=== PATIENT | female | born 1945 | race Caucasian/White ===

== ENCOUNTER → 2019-01-06 | Day surgery (SDC) | payer OTHER, BC | LOC: JASU-SURG 07:04 ==

== ENCOUNTER 2019-01-11 10:55 | Inpatient (IN) | payer OTHER ==
[2019-01-11 11:10] VITALS: BMI 30.8
--- NOTE | 2019-01-11 12:06 | HP ---
CIWA Score Nausea/Vomitin Muscle Tremors: 3 Anxiety: 3 Agitation: 3 Paroxysmal Sweats: 1-Minimal Palms Moist Orientation: 0-Oriented Tacttile Disturbances: 1-Very Mild Itch/Numbness Auditory Disturbances: 0-None Visual Disturbances: 1-Very Mild Sensitivity Headache: 2-Mild CIWA-Ar Total Score: 16 - Admission Criteria OASAS Guidelines: Admission for Medically Managed Detox: Requires at least one of the followin. CIWA greater than 12 2. Seizures within the past 24 hours 3. Delirium tremens within the past 24 hours 4. Hallucinations within the past 24 hours 5. Acute intervention needed for co occurring medical disorder 6. Acute intervention needed for co occurring psychiatric disorder 7. Severe withdrawal that cannot be handled at a lower level of care (continued vomiting, continued diarrhea, abnormal vital signs) requiring intravenous medication and/or fluids 8. Admission ROS [facility] - HPI Chief Complaint: i need help to stop drinking alcohol Allergies/Adverse Reactions: Allergies Allergy/AdvReac Type Severity Reaction Status Date / Time No Known Allergies Allergy Verified 01/11/19 11:03 History of Present Illness: this 73 years old female with alcohol dependence,seking help to stop drinking, withdrawal symptom had previous detox last 12/03/14 to 12/07/14 [facility] tear of right shoulder hypertension syncope alcohol related plan for rehab after detox - Ebola screening Have you traveled outside of the country in the last 21 days: No Have you had contact with anyone from an Ebola affected area: No Do you have a fever: No - Review of Systems Constitutional: Loss of Appetite, Malaise, Night Sweats, Changes in sleep, Weakness EENT: reports: Nose Congestion Respiratory: reports: No Symptoms reported Cardiac: reports: No Symptoms Reported GI: reports: Nausea, Vomiting, Abdominal cramping : reports: No Symptoms Reported Musculoskeletal: reports: Back Pain, Muscle Pain, Other (rotator cuff injury right shoulder) Integumentary: reports: Dryness Neuro: reports: Headache, Tremors Endocrine: reports: No Symptoms Reported Hematology: reports: No Symptoms Reported Psychiatric: reports: No Sypmtoms Reported Patient History - Patient Medical History Hx Anemia: Yes (IRON DAILY) Hx Asthma: Yes (ALLERGIC ASTHMA) Hx Chronic Obstructive Pulmonary Disease (COPD): No Hx Cancer: No Hx Cardiac Disorders: No Hx Congestive Heart Failure: No Hx Hypertension: Yes (on med) Hx Hypercholesterolemia: Yes (NO MEDS) Hx Pacemaker: No HX Cerebrovascular Accident: No Hx Seizures: No Hx Dementia: No Hx Diabetes: No Hx Gastrointestinal Disorders: Yes (PROTONIX) Hx Liver Disease: No Hx Genitourinary Disorders: No Hx Sexually Transmitted Disorders: No Hx Renal Disease (ESRD): No Hx Thyroid Disease: No Hx Human Immunodeficiency Virus (HIV): No Hx Hepatitis C: No Hx Depression: Yes Hx Suicide Attempt: No Hx Bipolar Disorder: No Hx Schizophrenia: No Other Medical History: no suicidal,no homicidal - Patient Surgical History Past Surgical History: Yes Hx Neurologic Surgery: No Hx Cataract Extraction: No Hx Cardiac Surgery: No Hx Lung Surgery: No Hx Breast Surgery: No Hx Breast Biopsy: No Hx Abdominal Surgery: No Hx Appendectomy: No Hx Cholecystectomy: No Hx Genitourinary Surgery: No Hx Section: No Hx Orthopedic Surgery: No Anesthesia Reaction: No - PPD History Previous Implant?: Yes Documented Results: Negative w/o proof Implanted On Prior R Admission?: Yes Date: 12/05/14 Results: 0 mm PPD to be Administered?: Yes - Smoking Cessation Smoking history: Former smoker Have you smoked in the past 12 months: No Hx Chewing Tobacco Use: No Initiated information on smoking cessation: Yes 'Breaking Loose' booklet given: 01/11/19 - Substance & Tx. History Hx Alcohol Use: Yes Hx Substance Use: No Substance Use Type: Alcohol Hx Substance Use Treatment: Yes ([facility] 12/03/14 to 12/07/14) - Substances abused Alcohol Substance route: Oral Frequency: Daily Amount used: 1/2 [place] Age of first use: 17 Date of last use: 01/10/19 Family Disease History - Family Disease History Family Disease History: Diabetes: Mother (HTN,CO), Heart Disease: Mother, Other : Son (ALCOHOL) Admission Physical Exam BHS - Vital Signs Vital Signs: Vital Signs - 24 hr 01/11/19 01/11/19 11:08 11:33 Temperature 97.0 F L 97.0 F L Pulse Rate 95 H 95 H Respiratory 18 18 Rate Blood Pressure 158/85 158/85 - Physical General Appearance: Yes: Moderate Distress, Tremorous, Irritable, Sweating, Anxious HEENTM: Yes: Normocephalic, Normal Voice, ROBBIN, Pharynx Normal Respiratory: Yes: Lungs Clear, Normal Breath Sounds, No Respiratory Distress Neck: Yes: Within Normal Limits, Supple, Trachea in good position Breast: Yes: Breast Exam Deferred Cardiology: Yes: Within Normal Limits, Regular Rhythm, Regular Rate, S1, S2 Abdominal: Yes: Within Normal Limits, Normal Bowel Sounds, Non Tender, Flat, Soft Genitourinary: Yes: Within Normal Limits Back: Yes: Muscle Spasm Musculoskeletal: Yes: full range of Motion, Back pain, Muscle Pain Extremities: Yes: Tremors, Other (rotator cuff injury) Neurological: Yes: telephone service adviser II-XII NML intact, Fully Oriented, Alert, Motor Strength 5/5 Integumentary: Yes: Dry Lymphatic: Yes: Within Normal Limits - Diagnostic (1) Alcohol dependence with uncomplicated withdrawal Current Visit: Yes Status: Acute (2) Anemia Current Visit: No Status: Acute (3) GERD (gastroesophageal reflux disease) Current Visit: No Status: Acute (4) HTN (hypertension) Current Visit: No Status: Acute (5) Hyperlipidemia Current Visit: No Status: Acute (6) Syncope Current Visit: Yes Status: Acute (7) Rotator cuff arthropathy of right shoulder Current Visit: Yes Status: Acute Cleared for Admission [facility] - Detox or Rehab [facility] Level of Care: Medically Managed Detox Regimen/Protocol: Librium Breathalyzer - Breathalyzer Breathalyzer: 0 Urine Drug Screen - Test Device Lot number: [id number] Expiration date: 08/07/20 - Control Is test valid?: Yes - Results Drug screen NEGATIVE: No Urine drug screen results: MTD-Methadone Inpatient Rehab Admission - Rehab Decision to Admit Inpatient rehab admission?: No
[2019-01-11] MEDS ORDERED: METHOCARBAMOL 500 MG TABLET PO PRN (12:17)
[2019-01-11] MEDS ORDERED: MAGNESIUM HYDROX 2400MG/30ML ORAL SUSPENSION 30 ML CUP PO PRN (12:17)
[2019-01-11] MEDS ORDERED: MENTHOL/PHENOL 1 EACH UD MM PRN (12:17)
[2019-01-11] MEDS ORDERED: MELATONIN 5 MG TABLETS PO PRN (12:17)
[2019-01-11] MEDS ORDERED: IBUPROFEN 400 MG TABLET (FP) PO PRN (12:17)
[2019-01-11] MEDS ORDERED: MAGNESIUM CITRATE 300 ML BOTTLE PO PRN (12:17)
[2019-01-11] MEDS ORDERED: MAG HYDROX/AL HYDROX/SIMETH 30 ML UNIT-DOSE CUP PO PRN (12:17)
[2019-01-11] MEDS ORDERED: hydrOXYzine PAMOATE 25 MG CAPSULE (FP) PO PRN (12:17)
[2019-01-11] MEDS ORDERED: ACETAMINOPHEN 325 MG TABLET (FP) PO PRN ×2 (12:17)
[2019-01-11] MEDS ORDERED: BISMUTH SUBSALICYLATE 262 MG/15 ML BTL PO PRN (12:17)
[2019-01-11] MEDS ORDERED: TRIMETHOBENZAMIDE HCL 200MG/2ML INJ IM PRN (12:20)
[2019-01-11] MEDS: chlordiazePOXIDE HCL 25 MG CAPSULE PO PRN ×2 (14:11→19:50)
[2019-01-11] MEDS ORDERED: ONDANSETRON *ODT* 4 MG TABLET SL PRN (14:55)
[2019-01-11] MEDS: chlordiazePOXIDE HCL 25 MG CAPSULE PO SCH ×2 (17:08→22:07)
[2019-01-11 19:00] LABS: HEMATOCRIT 37.8 % (32.4-45.2); HEMOGLOBIN 12.3 GM/dL (10.7-15.3); MCH 29.4 pg (25.7-33.7); MCHC 32.6 g/dl (32.0-36.0); MEAN CELL VOLUME 90.4 fl (80-96); MEAN PLT VOLUME 7.6 fl (7.5-11.1); PLATELET COUNT 190 K/MM3 (134-434); RBC 4.18 M/mm3 (3.60-5.2); WHITE BLOOD COUNT 8.1 K/mm3 (4.0-10.0)
[2019-01-11 19:27] LABS: ALBUMIN 4.4 g/dl (3.4-5.0); ALK PHOS 81 U/L (45-117); ANION GAP 13 MMOL/L (8-16); BILIRUBIN,TOTAL 1.2 mg/dL (0.2-1); BLOOD UREA NITROGEN 24 mg/dL (7-18); CALCIUM 8.9 mg/dL (8.5-10.1); CHLORIDE 93 mmol/L (98-107); CO2 28 mmol/L (21-32); CREATININE 1.2 mg/dL (0.55-1.3); GLUCOSE,RANDOM 242 mg/dL (74-106); POTASSIUM 3.4 mmol/L (3.5-5.1); SGOT/AST 43 U/L (15-37); SGPT/ALT 31 U/L (13-61); SODIUM 134 mmol/L (136-145)
--- NOTE | 2019-01-11 19:42 | PN ---
S Progress Note Note: K level is 3.4. EKG - wnl Will repeat electrolytes in am.
[2019-01-11] MEDS: THIAMINE HCL 100 MG TABLET (FP) PO SCH (22:07)
[2019-01-11] MEDS: QUEtiapine FUMARATE 50 MG TABLET PO SCH (22:08)
[2019-01-11] MEDS: FERROUS SO4 325 MG TABLET (FP) PO SCH (22:08)
[2019-01-12] MEDS: chlordiazePOXIDE HCL 25 MG CAPSULE PO SCH ×4 (05:31→22:13)
[2019-01-12] MEDS ORDERED: PANTOPRAZOLE 40 MG TABLET (FP) PO SCH (10:00)
[2019-01-12] MEDS: amLODIPine BESYLATE 10 MG TABLET (FP) PO SCH (10:28)
[2019-01-12] MEDS: PRENATAL VITAMINS W/ FOLIC ACID TABLET (FP) PO SCH (10:28)
[2019-01-12] MEDS: LOSARTAN POTASSIUM 50 MG TABLET (FP) PO SCH (10:28)
[2019-01-12] MEDS: FERROUS SO4 325 MG TABLET (FP) PO SCH ×2 (10:28→22:14)
[2019-01-12] MEDS: HYDROCHLOROTHIAZIDE 12.5 MG CAPSULE (FP) PO SCH (10:28)
[2019-01-12] MEDS: RANITIDINE HCL 150 MG TABLET (FP) PO SCH ×2 (10:29→22:14)
--- NOTE | 2019-01-12 11:32 | PN ---
[facility] CIWA - CIWA Score Nausea/Vomitin-Mild Nausea/No Vomiting Muscle Tremors: 3 Anxiety: 3 Agitation: 3 Paroxysmal Sweats: 1-Minimal Palms Moist Orientation: 1-Uncertain about Date Tacttile Disturbances: 0-None Auditory Disturbances: 0-None Visual Disturbances: 0-None Headache: 0-None Present CIWA-Ar Total Score: 12 S Progress Note (SOAP) Subjective: doing well with librium protocol less tremor mild muscle sore Objective: 01/12/19 11:33 Vital Signs Temperature 97.1 F L 01/12/19 09:09 Pulse Rate 112 H 01/12/19 09:09 Respiratory Rate 18 01/12/19 09:09 Blood Pressure 140/79 01/12/19 09:09 O2 Sat by Pulse Oximetry (%) Laboratory Last Values WBC 8.1 K/mm3 (4.0-10.0) 01/11/19 12:15 RBC 4.18 M/mm3 (3.60-5.2) 01/11/19 12:15 Hgb 12.3 GM/dL (10.7-15.3) 01/11/19 12:15 Hct 37.8 % (32.4-45.2) 01/11/19 12:15 MCV 90.4 fl (80-96) 01/11/19 12:15 MCH 29.4 pg (25.7-33.7) D 01/11/19 12:15 MCHC 32.6 g/dl (32.0-36.0) 01/11/19 12:15 RDW 15.0 % (11.6-15.6) D 01/11/19 12:15 Plt Count 190 K/MM3 (134-434) 01/11/19 12:15 MPV 7.6 fl (7.5-11.1) 01/11/19 12:15 Sodium 134 mmol/L (136-145) L 01/11/19 12:15 Potassium 3.4 mmol/L (3.5-5.1) L 01/11/19 12:15 Chloride 93 mmol/L (98-107) L 01/11/19 12:15 Carbon Dioxide 28 mmol/L (21-32) 01/11/19 12:15 Anion Gap 13 MMOL/L (8-16) 01/11/19 12:15 BUN 24 mg/dL (7-18) H 01/11/19 12:15 Creatinine 1.2 mg/dL (0.55-1.3) 01/11/19 12:15 Creat Clearance w eGFR 43.91 (>60) 01/11/19 12:15 Random Glucose 242 mg/dL (74-106) H 01/11/19 12:15 Calcium 8.9 mg/dL (8.5-10.1) 01/11/19 12:15 Total Bilirubin 1.2 mg/dL (0.2-1) H 01/11/19 12:15 AST 43 U/L (15-37) H 01/11/19 12:15 ALT 31 U/L (13-61) 01/11/19 12:15 Alkaline Phosphatase 81 U/L (45-117) 01/11/19 12:15 Total Protein 8.0 g/dl (6.4-8.2) 01/11/19 12:15 Albumin 4.4 g/dl (3.4-5.0) 01/11/19 12:15 POC Urine HCG, Qual Negative 01/11/19 11:44 lab noted K+ 3.4 repeat K+ today result pending Assessment: 01/12/19 11:34 alcohol withdrawal sx Plan: continue detox
[2019-01-12] MEDS ORDERED: cloNIDine HCL 0.1 MG TABLET PO PRN (11:36)
--- NOTE | 2019-01-12 13:00 | EKG ---
Test Reason : Blood Pressure : / mmHG Vent. Rate : 081 BPM Atrial Rate : 081 BPM P-R Int : 126 ms QRS Dur : 078 ms QT Int : 404 ms P-R-T Axes : 020 041 057 degrees QTc Int : 469 ms NORMAL SINUS RHYTHM NORMAL ECG WHEN COMPARED WITH ECG OF 17-MAY-2006 15:13, NO SIGNIFICANT CHANGE WAS FOUND Confirmed by MD ROSALES, MIGUEL ([id number]) on 01/12/2019 1:00:18 PM Referred By: Confirmed By:MIGUEL CABA MD
--- NOTE | 2019-01-12 14:44 | PN ---
[facility] Progress Note Note: patient is borderline diabetes taking herb medication at home patient requesting bgm before breakfast daily reject oral antiglycemia medication encourage weight loss
[2019-01-12 20:26] LABS: EPI CELLS 13.8 /HPF (0-5/HPF); URINE APPEARANCE CLEAR; URINE BACTERIA 139.1 /hpf (NEGATIVE); URINE BILIRUBIN NEGATIVE (NEGATIVE); URINE CASTS 32 /lpf (0-8); URINE COLOR DK YELLOW; URINE GLUCOSE (UA) NEGATIVE (NEGATIVE); URINE KETONE TRACE (NEGATIVE); URINE LEUK ESTERASE TRACE (NEGATIVE); URINE NITRITE NEGATIVE (NEGATIVE); URINE PROTEIN 2+ (NEGATIVE); URINE RBC 3 /hpf (0-4); URINE UROBILINOGEN 0.2 mg/dL (0.2-1.0); URINE WBC 6 /hpf (0-5)
[2019-01-12] MEDS: THIAMINE HCL 100 MG TABLET (FP) PO SCH (22:13)
[2019-01-12] MEDS: QUEtiapine FUMARATE 50 MG TABLET PO SCH (22:14)
[2019-01-13] MEDS: chlordiazePOXIDE HCL 25 MG CAPSULE PO SCH ×2 (06:00→10:03)
[2019-01-13] MEDS: RANITIDINE HCL 150 MG TABLET (FP) PO SCH ×2 (10:03→22:25)
[2019-01-13] MEDS: LOSARTAN POTASSIUM 50 MG TABLET (FP) PO SCH (10:03)
[2019-01-13] MEDS: FERROUS SO4 325 MG TABLET (FP) PO SCH ×2 (10:03→22:25)
[2019-01-13] MEDS: PRENATAL VITAMINS W/ FOLIC ACID TABLET (FP) PO SCH (10:03)
[2019-01-13] MEDS: HYDROCHLOROTHIAZIDE 12.5 MG CAPSULE (FP) PO SCH (10:03)
[2019-01-13] MEDS: amLODIPine BESYLATE 10 MG TABLET (FP) PO SCH (10:03)
--- NOTE | 2019-01-13 14:48 | PN ---
S CIWA - CIWA Score Nausea/Vomitin-Mild Nausea/No Vomiting Muscle Tremors: 2 Anxiety: 2 Agitation: 2 Paroxysmal Sweats: No Perspiration Orientation: 0-Oriented Tacttile Disturbances: 0-None Auditory Disturbances: 0-None Visual Disturbances: 0-None Headache: 1-Very Mild CIWA-Ar Total Score: 8 S Progress Note (SOAP) Subjective: feeling better today more energy social with peers in day room Objective: 01/13/19 14:50 Vital Signs Temperature 98.6 F 01/13/19 14:15 Pulse Rate 93 H 01/13/19 14:15 Respiratory Rate 18 01/13/19 14:15 Blood Pressure 94/60 01/13/19 14:15 O2 Sat by Pulse Oximetry (%) Laboratory Last Values WBC 8.1 K/mm3 (4.0-10.0) 01/11/19 12:15 RBC 4.18 M/mm3 (3.60-5.2) 01/11/19 12:15 Hgb 12.3 GM/dL (10.7-15.3) 01/11/19 12:15 Hct 37.8 % (32.4-45.2) 01/11/19 12:15 MCV 90.4 fl (80-96) 01/11/19 12:15 MCH 29.4 pg (25.7-33.7) D 01/11/19 12:15 MCHC 32.6 g/dl (32.0-36.0) 01/11/19 12:15 RDW 15.0 % (11.6-15.6) D 01/11/19 12:15 Plt Count 190 K/MM3 (134-434) 01/11/19 12:15 MPV 7.6 fl (7.5-11.1) 01/11/19 12:15 Sodium 134 mmol/L (136-145) L 01/11/19 12:15 Potassium 3.4 mmol/L (3.5-5.1) L 01/13/19 09:45 Chloride 93 mmol/L (98-107) L 01/11/19 12:15 Carbon Dioxide 28 mmol/L (21-32) 01/11/19 12:15 Anion Gap 13 MMOL/L (8-16) 01/11/19 12:15 BUN 24 mg/dL (7-18) H 01/11/19 12:15 Creatinine 1.2 mg/dL (0.55-1.3) 01/11/19 12:15 Creat Clearance w eGFR 43.91 (>60) 01/11/19 12:15 POC Glucometer 135 UNITS (80-120) 01/13/19 05:59 Random Glucose 242 mg/dL (74-106) H 01/11/19 12:15 Calcium 8.9 mg/dL (8.5-10.1) 01/11/19 12:15 Total Bilirubin 1.2 mg/dL (0.2-1) H 01/11/19 12:15 AST 43 U/L (15-37) H 01/11/19 12:15 ALT 31 U/L (13-61) 01/11/19 12:15 Alkaline Phosphatase 81 U/L (45-117) 01/11/19 12:15 Total Protein 8.0 g/dl (6.4-8.2) 01/11/19 12:15 Albumin 4.4 g/dl (3.4-5.0) 01/11/19 12:15 Urine Color Dk yellow 01/12/19 12:30 Urine Appearance Clear 01/12/19 12:30 Urine pH 5.0 (5.0-8.0) 01/12/19 12:30 Ur Specific [place] 1.021 (1.010-1.035) 01/12/19 12:30 Urine Protein 2+ (NEGATIVE) H 01/12/19 12:30 Urine Glucose (UA) Negative (NEGATIVE) 01/12/19 12:30 Urine Ketones Trace (NEGATIVE) H 01/12/19 12:30 Urine Blood Negative (NEGATIVE) 01/12/19 12:30 Urine Nitrite Negative (NEGATIVE) 01/12/19 12:30 Urine Bilirubin Negative (NEGATIVE) 01/12/19 12:30 Urine Urobilinogen 0.2 mg/dL (0.2-1.0) 01/12/19 12:30 Ur Leukocyte Esterase Trace (NEGATIVE) 01/12/19 12:30 Urine WBC (Auto) 6 /hpf (0-5) 01/12/19 12:30 Urine RBC (Auto) 3 /hpf (0-4) 01/12/19 12:30 Urine Casts (Auto) 32 /lpf (0-8) 01/12/19 12:30 U Pathogenic Cast Auto None /lpf (NEGATIVE) 01/12/19 12:30 U Epithel Cells (Auto) 13.8 /HPF (0-5/HPF) 01/12/19 12:30 Urine Bacteria (Auto) 139.1 /hpf (NEGATIVE) 01/12/19 12:30 POC Urine HCG, Qual Negative 01/11/19 11:44 RPR Titer Nonreactive (NONREACTIVE) 01/11/19 12:15 lab noted K+3.4 Assessment: 01/13/19 14:54 alcohol withdrawal sx low K+ Plan: continue detox repeat K+ K+ supplement
--- NOTE | 2019-01-13 16:40 | PN ---
[facility] Progress Note Note: patient requesting to take hs medication seroquel at 2000 pm that she sleep early
[2019-01-13] MEDS ORDERED: chlordiazePOXIDE HCL 10 MG CAPSULE PO PRN (17:00)
[2019-01-13] MEDS: chlordiazePOXIDE HCL 10 MG CAPSULE PO SCH ×2 (17:52→22:25)
[2019-01-13] MEDS: POTASSIUM CHLORIDE ORAL LIQUID 20 MEQ/15 ML PO SCH ×2 (17:52→20:05)
[2019-01-13] MEDS: QUEtiapine FUMARATE 50 MG TABLET PO SCH ×2 (20:05→22:27)
[2019-01-13] MEDS: THIAMINE HCL 100 MG TABLET (FP) PO SCH (22:25)
[2019-01-14] MEDS: chlordiazePOXIDE HCL 10 MG CAPSULE PO SCH ×3 (06:15→17:18)
[2019-01-14] MEDS: HYDROCHLOROTHIAZIDE 12.5 MG CAPSULE (FP) PO SCH (10:31)
[2019-01-14] MEDS: RANITIDINE HCL 150 MG TABLET (FP) PO SCH ×2 (10:31→22:02)
[2019-01-14] MEDS: FERROUS SO4 325 MG TABLET (FP) PO SCH ×2 (10:31→22:02)
[2019-01-14] MEDS: PRENATAL VITAMINS W/ FOLIC ACID TABLET (FP) PO SCH (10:32)
[2019-01-14] MEDS: amLODIPine BESYLATE 10 MG TABLET (FP) PO SCH (11:09)
[2019-01-14] MEDS: LOSARTAN POTASSIUM 50 MG TABLET (FP) PO SCH (11:09)
--- NOTE | 2019-01-14 12:22 | PN ---
[facility] CIWA - CIWA Score Nausea/Vomitin-Mild Nausea/No Vomiting Muscle Tremors: 1-None Visible, but [place] Anxiety: 1-Mildly Anxious Agitation: 1-Slight > Activity Paroxysmal Sweats: No Perspiration Orientation: 0-Oriented Tacttile Disturbances: 0-None Auditory Disturbances: 0-None Visual Disturbances: 0-None Headache: 1-Very Mild CIWA-Ar Total Score: 5 S Progress Note (SOAP) Subjective: feeling better encourage to utilize community health services for medical issues Objective: 01/14/19 12:23 Vital Signs Temperature 96.9 F L 01/14/19 09:53 Pulse Rate 77 01/14/19 09:53 Respiratory Rate 20 01/14/19 09:53 Blood Pressure 108/65 01/14/19 09:53 O2 Sat by Pulse Oximetry (%) Laboratory Last Values WBC 8.1 K/mm3 (4.0-10.0) 01/11/19 12:15 RBC 4.18 M/mm3 (3.60-5.2) 01/11/19 12:15 Hgb 12.3 GM/dL (10.7-15.3) 01/11/19 12:15 Hct 37.8 % (32.4-45.2) 01/11/19 12:15 MCV 90.4 fl (80-96) 01/11/19 12:15 MCH 29.4 pg (25.7-33.7) D 01/11/19 12:15 MCHC 32.6 g/dl (32.0-36.0) 01/11/19 12:15 RDW 15.0 % (11.6-15.6) D 01/11/19 12:15 Plt Count 190 K/MM3 (134-434) 01/11/19 12:15 MPV 7.6 fl (7.5-11.1) 01/11/19 12:15 Sodium 134 mmol/L (136-145) L 01/11/19 12:15 Potassium 4.2 mmol/L (3.5-5.1) 01/14/19 07:00 Chloride 93 mmol/L (98-107) L 01/11/19 12:15 Carbon Dioxide 28 mmol/L (21-32) 01/11/19 12:15 Anion Gap 13 MMOL/L (8-16) 01/11/19 12:15 BUN 24 mg/dL (7-18) H 01/11/19 12:15 Creatinine 1.2 mg/dL (0.55-1.3) 01/11/19 12:15 Creat Clearance w eGFR 43.91 (>60) 01/11/19 12:15 POC Glucometer 154 UNITS (80-120) 01/14/19 06:17 Random Glucose 242 mg/dL (74-106) H 01/11/19 12:15 Calcium 8.9 mg/dL (8.5-10.1) 01/11/19 12:15 Total Bilirubin 1.2 mg/dL (0.2-1) H 01/11/19 12:15 AST 43 U/L (15-37) H 01/11/19 12:15 ALT 31 U/L (13-61) 01/11/19 12:15 Alkaline Phosphatase 81 U/L (45-117) 01/11/19 12:15 Total Protein 8.0 g/dl (6.4-8.2) 01/11/19 12:15 Albumin 4.4 g/dl (3.4-5.0) 01/11/19 12:15 Urine Color Dk yellow 01/12/19 12:30 Urine Appearance Clear 01/12/19 12:30 Urine pH 5.0 (5.0-8.0) 01/12/19 12:30 Ur Specific [place] 1.021 (1.010-1.035) 01/12/19 12:30 Urine Protein 2+ (NEGATIVE) H 01/12/19 12:30 Urine Glucose (UA) Negative (NEGATIVE) 01/12/19 12:30 Urine Ketones Trace (NEGATIVE) H 01/12/19 12:30 Urine Blood Negative (NEGATIVE) 01/12/19 12:30 Urine Nitrite Negative (NEGATIVE) 01/12/19 12:30 Urine Bilirubin Negative (NEGATIVE) 01/12/19 12:30 Urine Urobilinogen 0.2 mg/dL (0.2-1.0) 01/12/19 12:30 Ur Leukocyte Esterase Trace (NEGATIVE) 01/12/19 12:30 Urine WBC (Auto) 6 /hpf (0-5) 01/12/19 12:30 Urine RBC (Auto) 3 /hpf (0-4) 01/12/19 12:30 Urine Casts (Auto) 32 /lpf (0-8) 01/12/19 12:30 U Pathogenic Cast Auto None /lpf (NEGATIVE) 01/12/19 12:30 U Epithel Cells (Auto) 13.8 /HPF (0-5/HPF) 01/12/19 12:30 Urine Bacteria (Auto) 139.1 /hpf (NEGATIVE) 01/12/19 12:30 POC Urine HCG, Qual Negative 01/11/19 11:44 RPR Titer Nonreactive (NONREACTIVE) 01/11/19 12:15 lab noted Assessment: 01/14/19 12:23 mild alcohol withdrawal sx Plan: continue detox
[2019-01-14] MEDS: THIAMINE HCL 100 MG TABLET (FP) PO SCH (22:01)
[2019-01-14] MEDS: QUEtiapine FUMARATE 50 MG TABLET PO SCH (22:02)
[2019-01-15] MEDS: chlordiazePOXIDE HCL 10 MG CAPSULE PO SCH (05:24)
[2019-01-15 09:10] VITALS: BP 131/68; PULSE 92; TEMP 97.3
--- NOTE | 2019-01-15 19:14 | DS ---
[facility] Detox Discharge Summary Admission Date: 01/11/19 Discharge Date: 01/15/19 - History Present History: Alcohol Dependence Additional Comments: PATIENT GOING HOME FOR THE WEEKEND, BUT WILL THEN APPLY FOR ADMISSION TO [facility] ([place], [place]) FOR AFTERCARE. PATIENT DECLINED OFFER OF MEDICATION PRESCRIPTION FOR HOME MEDICATION AT TIME OF DISCHARGE FROM DETOX, NOTING THAT HE CURRENTLY HAS ADEQUATE SUPPLIES OF ALL PRESCRIBED HOME MEDICATIONS AT HOME. PATIENT WAS DISCHARGED FROM DETOX UNIT IN STABLE MEDICAL CONDITION. Pertinent Past History: History Of Anemia, G.E.R.D., History Of Asthma, Hyperlipidemia, G.E.R.D, History Of Syncope (Alcohol-Related), History Of Rotator Cuff Arthropathy Of Right Shoulder, History Of Depression. - Physical Exam Results Vital Signs: Vital Signs Temperature 97.3 F L 01/15/19 09:09 Pulse Rate 92 H 01/15/19 09:09 Respiratory Rate 18 01/15/19 09:09 Blood Pressure 131/68 01/15/19 09:09 O2 Sat by Pulse Oximetry (%) Pertinent Admission Physical Exam Findings: WITHDRAWAL SYMPTOMS. Laboratory Tests 01/11/19 01/11/19 01/11/19 11:44 12:15 12:15 WBC 8.1 RBC 4.18 Hgb 12.3 Hct 37.8 MCV 90.4 MCH 29.4 D MCHC 32.6 RDW 15.0 D Plt Count 190 MPV 7.6 Sodium 134 L Potassium 3.4 L Chloride 93 L Carbon Dioxide 28 Anion Gap 13 BUN 24 H Creatinine 1.2 Creat Clearance w eGFR 43.91 POC Glucometer Random Glucose 242 H Calcium 8.9 Total Bilirubin 1.2 H AST 43 H ALT 31 Alkaline Phosphatase 81 Total Protein 8.0 Albumin 4.4 Urine Color Urine Appearance Urine pH Ur Specific [place] Urine Protein Urine Glucose (UA) Urine Ketones Urine Blood Urine Nitrite Urine Bilirubin Urine Urobilinogen Ur Leukocyte Esterase Urine WBC (Auto) Urine RBC (Auto) Urine Casts (Auto) U Pathogenic Cast Auto U Epithel Cells (Auto) Urine Bacteria (Auto) POC Urine HCG, Qual Negative RPR Titer 01/11/19 01/12/19 01/13/19 12:15 12:30 05:59 WBC RBC Hgb Hct MCV MCH MCHC RDW Plt Count MPV Sodium Potassium Chloride Carbon Dioxide Anion Gap BUN Creatinine Creat Clearance w eGFR POC Glucometer 135 Random Glucose Calcium Total Bilirubin AST ALT Alkaline Phosphatase Total Protein Albumin Urine Color Dk yellow Urine Appearance Clear Urine pH 5.0 Ur Specific [place] 1.021 Urine Protein 2+ H Urine Glucose (UA) Negative Urine Ketones Trace H Urine Blood Negative Urine Nitrite Negative Urine Bilirubin Negative Urine Urobilinogen 0.2 Ur Leukocyte Esterase Trace Urine WBC (Auto) 6 Urine RBC (Auto) 3 Urine Casts (Auto) 32 U Pathogenic Cast Auto None U Epithel Cells (Auto) 13.8 Urine Bacteria (Auto) 139.1 POC Urine HCG, Qual RPR Titer Nonreactive 01/13/19 01/14/19 01/14/19 09:45 06:17 07:00 WBC RBC Hgb Hct MCV MCH MCHC RDW Plt Count MPV Sodium Potassium 3.4 L 4.2 Chloride Carbon Dioxide Anion Gap BUN Creatinine Creat Clearance w eGFR POC Glucometer 154 Random Glucose Calcium Total Bilirubin AST ALT Alkaline Phosphatase Total Protein Albumin Urine Color Urine Appearance Urine pH Ur Specific [place] Urine Protein Urine Glucose (UA) Urine Ketones Urine Blood Urine Nitrite Urine Bilirubin Urine Urobilinogen Ur Leukocyte Esterase Urine WBC (Auto) Urine RBC (Auto) Urine Casts (Auto) U Pathogenic Cast Auto U Epithel Cells (Auto) Urine Bacteria (Auto) POC Urine HCG, Qual RPR Titer 01/15/19 05:23 WBC RBC Hgb Hct MCV MCH MCHC RDW Plt Count MPV Sodium Potassium Chloride Carbon Dioxide Anion Gap BUN Creatinine Creat Clearance w eGFR POC Glucometer 135 Random Glucose Calcium Total Bilirubin AST ALT Alkaline Phosphatase Total Protein Albumin Urine Color Urine Appearance Urine pH Ur Specific [place] Urine Protein Urine Glucose (UA) Urine Ketones Urine Blood Urine Nitrite Urine Bilirubin Urine Urobilinogen Ur Leukocyte Esterase Urine WBC (Auto) Urine RBC (Auto) Urine Casts (Auto) U Pathogenic Cast Auto U Epithel Cells (Auto) Urine Bacteria (Auto) POC Urine HCG, Qual RPR Titer LABS NOTED. - Treatment Hospital Course: Detox Protocol Followed, Detoxed Safely, Responded well, Discharged Condition Good, Rehab Referral Accepted Patient has Accepted a Rehab Referral to: [facility] ([place], [place]). - Medication Discharge Medications: Ambulatory Orders Ferrous Sulfate [Feosol] 325 mg PO BID #60 tablet 12/07/14 Pantoprazole Sodium [Protonix -] 40 mg PO BID #30 tablet.ec 12/07/14 Quetiapine Fumarate [Seroquel -] 50 mg PO HS 01/11/19 Amlodipine Besylate [Norvasc -] 10 mg PO DAILY #30 tablet 01/14/19 Hydrochlorothiazide [Hctz -] 12.5 mg PO DAILY #30 tablet 01/14/19 Losartan Potassium [Cozaar -] 50 mg PO DAILY #30 tablet 01/14/19 - Diagnosis (1) Alcohol dependence with uncomplicated withdrawal Status: Acute (2) Anemia Status: Acute Qualifiers: Anemia type: iron deficiency Iron deficiency anemia type: unspecified iron deficiency Qualified Code(s): D50.9 - Iron deficiency anemia, unspecified (3) GERD (gastroesophageal reflux disease) Status: Acute Qualifiers: Esophagitis presence: esophagitis presence not specified Qualified Code(s) : K21.9 - Gastro-esophageal reflux disease without esophagitis (4) HTN (hypertension) Status: Acute Qualifiers: Hypertension type: unspecified Qualified Code(s): I10 - Essential (primary ) hypertension (5) Hyperlipidemia Status: Acute Qualifiers: Hyperlipidemia type: unspecified Qualified Code(s): E78.5 - Hyperlipidemia , unspecified (6) Rotator cuff arthropathy of right shoulder Status: Acute (7) Syncope Status: Acute Qualifiers: Syncope type: unspecified Qualified Code(s): R55 - Syncope and collapse - AMA Did Patient Leave Against Medical Advice: No
== END 2019-01-15 09:42 | disposition home or self-care (01) | DRG 897 ==
LOC: YASAS 10:55 → Y3N 12:09
PROVIDERS: ADMIT Surgery; ATTEND Surgery
PROC: HZ2ZZZZ Detoxification Services for Substance Abuse Treatment (ICD-10-PCS; principal; 2019-01-11)
DX: F10.230 Alcohol dependence with withdrawal, uncomplicated (principal); I10 Essential (primary) hypertension; D50.9 Iron deficiency anemia, unspecified; K21.9 Gastro-esophageal reflux disease without esophagitis; E78.5 Hyperlipidemia, unspecified; R73.03 Prediabetes; J45.909 Unspecified asthma, uncomplicated; Z87.891 Personal history of nicotine dependence
CPT/HCPCS: 36415; 80053; 81003; 81025; 82962; 84132; 85027; 86593; 93005; 93010